=== PATIENT | female | born 1960 | race Caucasian/White ===

== ENCOUNTER 2023-03-27 09:52 | Outpatient (AMB) | payer BC, SELFPAY ==
--- NOTE | 2023-03-27 10:00 | MHC.OFFVIS ---
Intake Vital Signs 03/27/23 10:06 Height 5 ft 7 in Weight 165 lb BMI 25.8 BP 131/75 Blood Pressure Location Rt brachial Position Sitting Pulse 73 Intake Visit Reasons: Colonoscopy 4 year recall Intake Note: This patient presents for a recall colonoscopy screening. Patient c/o; reports last colonoscopy was done by 4 years ago, denies complaints at this time, family Hx colon CA, sister was Dx age of 70. 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 She describes a family history of colon cancer. She says her sister was diagnosed to have colon cancer in her late 60s. She therefore undergoes a colonoscopy every 5 years. Review of her records show that her last colonoscopy was in [address] Perkins. There were normal findings at that time. She currently denies significant GI complaints. She also stated that her brother, sister as well as son all were diagnosed to have ulcerative colitis. [facility] Medical History Thyroid disease Hyperlipidemia Family history of colon cancer Review of Systems Const Denies chills and Denies fever(s) Card Denies chest pain, Denies dyspnea and Denies dyspnea on exertion Resp Denies cough, Denies dyspnea and Denies dyspnea on exertion GI Denies hematochezia and Denies change in bowel habits Denies hematuria Musc Denies back pain and Denies limited range of motion Neuro Denies focal weakness and Denies convulsions Psych Denies depression and Denies mood swings Physical Exam Const General: comfortable and no acute distress Orientation/consciousness: patient oriented x3 Neck Neck: Yes no lymphadenopathy Resp Auscultation: clear to auscultation bilaterally Cardio Rhythm: regular rhythm GI Palpation (GI): Soft to palpation, nontender and no guarding Neuro General: patient oriented x3 Assessment & Plan Assessment & Plan (1) Family history of colon cancer: Code(s): Z80.0 - Family history of malignant neoplasm of digestive organs Plan: Her last colonoscopy was in 2019. This was unremarkable. I told her that Dr. Perkins had recommended another colonoscopy in 5 years. She may not be due until early next year. I reviewed with her the technique of this procedure. I explained the risks, benefits, and alternatives She says she understands. She says she will schedule for her colonoscopy for 2023. Coding Level of Care Code New Pt Level 3 (00399) Diagnoses Family history of colon cancer Z80.0
[2023-03-27 10:06] VITALS: BP 131/75; PULSE 73; BMI 25.8
== END 2023-03-27 10:18 | disposition home or self-care (01) ==
PROVIDERS: PCP Internal Medicine; Visit Provider Surgery
DX: Z80.0 Family history of malignant neoplasm of digestive organs (principal)
CPT/HCPCS: 99203

== ENCOUNTER → 2023-03-27 09:52 | Outpatient (BNVA) | payer BC, SELFPAY | PROVIDERS: PCP Internal Medicine; Visit Provider Surgery ==

== ENCOUNTER 2023-10-27 07:27 | Day surgery (SDC) | payer MEDICARE, SELFPAY ==
[2023-10-24 10:41] VITALS: BMI 25.8
--- NOTE | 2023-10-25 13:13 | HO.ANESPROP2 ---
Documented by User: Fallon Youssef NP 10/25/23 13:13 HPI - Anesthesia Eval Consult details Narrative: 63yo F for Colonoscopy with possible Polypectomy [facility] Active Problems Active Problems: All Active Problems Thyroid disease (Acute) Hyperlipidemia (Acute) Family history of colon cancer (Acute) Past Medical History Medical History (Updated 10/27/23 @ 07:53 by Kenyetta Cota) A-fib Thyroid disease Hyperlipidemia Family history of colon cancer Surgical History Surgical History (Updated 10/27/23 @ 07:53 by Kenyetta Cota) [place] teeth removed H/O colonoscopy History of total hip replacement Social History Social History Patient Tobacco Use Status: Never used Tobacco Use of substances other than those prescribed or required for medical reasons: No Are you DNR?: No Advance Directives: No Advance Directives Information Provided: Yes Meds Allergies Allergy/AdvReac Type Severity Reaction Status Date / Time morphine [MORPHINE] Allergy Intermediate HIVES/FLUSH Verified 10/27/23 07:53 ING Home Medications ?Medication ?Instructions ?Recorded ?Confirmed ?Last Taken ?Type atorvastatin 20 mg tablet 20 mg PO BEDTIME 03/27/23 10/27/23 Unknown History fluoxetine 20 mg capsule 20 mg PO DAILY 03/27/23 10/27/23 Unknown History levothyroxine 50 mcg tablet 50 mcg PO DAILY 03/27/23 10/27/23 Unknown History apixaban 5 mg tablet (Eliquis) 5 mg PO BID 10/27/23 10/27/23 10/25/23 History metoprolol succinate 25 mg 25 mg PO DAILY 10/27/23 10/27/23 10/26/23 History tablet,extended release 24 hr Exam Height,Weight and Vital Signs: Height 5 ft 7 in Weight 74.843 kg Assessment and Plan Assessment Anesthesia Assessment: Chart Reviewed Documented by User: Sybil Ramos MD 10/27/23 09:22 PMFSH Past Medical History Medical History (Updated 10/27/23 @ 07:53 by Kenyetta Cota) A-fib Thyroid disease Hyperlipidemia Family history of colon cancer Family History Family history of problems with anesthesia: No Surgical History Surgical History (Updated 10/27/23 @ 07:53 by Kenyetta Cota) [place] teeth removed H/O colonoscopy History of total hip replacement History of Problems with Anesthesia: No Social History Social History Patient Tobacco Use Status: Never used Tobacco Use of substances other than those prescribed or required for medical reasons: No Are you DNR?: No Advance Directives: No Advance Directives Information Provided: Yes Meds Allergies Allergy/AdvReac Type Severity Reaction Status Date / Time morphine [MORPHINE] Allergy Intermediate HIVES/FLUSH Verified 10/27/23 07:53 ING Home Medications ?Medication ?Instructions ?Recorded ?Confirmed ?Last Taken ?Type atorvastatin 20 mg tablet 20 mg PO BEDTIME 03/27/23 10/27/23 Unknown History fluoxetine 20 mg capsule 20 mg PO DAILY 03/27/23 10/27/23 Unknown History levothyroxine 50 mcg tablet 50 mcg PO DAILY 03/27/23 10/27/23 Unknown History apixaban 5 mg tablet (Eliquis) 5 mg PO BID 10/27/23 10/27/23 10/25/23 History metoprolol succinate 25 mg 25 mg PO DAILY 10/27/23 10/27/23 10/26/23 History tablet,extended release 24 hr Exam Airway Mallampati Class: II (caps laterally) TM Dist: >3cm Neck ROM: Full Heart: rrr Lungs: cta Assessment and Plan Assessment Anesthesia Assessment: Anesthesia Plan Discussed Final Anesthetic Review Family History of Problems with Anesthesia: No History of Problems with Anesthesia: No NPO: Yes ASA Class: II Final Preanesthetic Review: No Changes in Pt Med Stat, Meds/Allgs Chart Reviewed and Consent Obtained/Reviewed Patient Risk: Low Procedure Risk: Low Anesthetic Plan Anesthetic Plan: MAC: Disposition: Standard PACU
[2023-10-27 07:54] VITALS: BMI 27.5
[2023-10-27 08:02] VITALS: BP 119/51; PULSE 62; RESP 16; TEMP 37.4; O2SAT 97
[2023-10-27] MEDS: Lactated Ringers 1,000 ML 100 ML IVCONT (08:25)
--- NOTE | 2023-10-27 09:18 | MHC.SHP ---
Pre-Procedural Eval Section A - 24 Hr Update-Section A only Date of Service: 10/27/23 Section B - Complete if H&P > 30 days Chief Complaint: Family history of malignant neoplasm of digestive Details of Present Illness: Has family of colon cancer, undergoes colonoscopy every 5 years Relevant Social History: None Present Medications: see Short Stay Collaborative assessment Medical History: Significant History (Thyroid disease, hyperlipidemia) History of Previous Operations: No relevant previous surgery Allergies: Allergies Allergy/AdvReac Type Severity Reaction Status Date / Time morphine [MORPHINE] Allergy Intermediate HIVES/FLUSH Verified 10/27/23 07:53 ING Review of Systems Sugical H&P ROS: Negative: Constitution, Cardiovascular, Respiratory, Neurological, Psychiatric, Hem-Onc, Allergic/Immunologic, Gastrointestinal, Genitourinary, Musculoskeletal, Integumentary, Endocrine and Eyes/Ears/Nose/Throat Exam Surgical H&P Exam: Normal: HEENT, Normal: Heart, Normal: Lungs, Normal: Extremities, Normal: Abdomen, Normal: Skin and Normal: Neurological Plan Diagnosis/Plan: Unchanged I have reviewed the history and physical and performed a pertinent physical examination on my patient. No changes have occurred unless specified. Time Spent With Patient Time: Total time managing care of this patient today ____ minutes.
--- NOTE | 2023-10-27 09:23 | PC.NURSE ---
Patient has two rings on right thumb that can not be removed. Dr. Ramos and Dr. Walls made aware. Okay to proceed into procedure.
--- NOTE | 2023-10-27 09:56 | W.PM.OPN ---
Operative Note Operative Note Date of Service: 10/27/23 Narrative: Preop diagnosis: Family history of colon cancer Postop diagnosis: External hemorrhoids otherwise normal colonoscopy findings Procedure: Colonoscopy Surgeon:Cecil Naqvi MD The patient is a 63-year-old female with a family history of colon cancer. She undergoes a colonoscopy every 5 years. She understands the technique of the procedure as well as the risks, benefits, and alternatives.
--- NOTE | 2023-10-27 09:59 | W.PM.OPN ---
Operative Note Operative Note Date of Service: 10/27/23 Narrative: Preop diagnosis: Family history of colon cancer Postop diagnosis: External hemorrhoids otherwise normal colonoscopy findings Procedure: Colonoscopy Surgeon: Cecil Naqvi MD The patient is a 63-year-old female with a family history of colon cancer and undergoes a colonoscopy every 5 years. She understands the technique of the procedure as well as the risks, benefits, and alternatives. The patient was brought to the operating room and placed in left lateral decubitus position under monitored anesthesia care. A surgical time-out was done. A full digital rectal exam was done and this did not reveal any significant anal lesions. The tip of the Olympus colonoscope was gently introduced through the anal orifice advanced with insufflation all the way to the cecum. The cecum was intubated. The cecum was identified by visualization of the ileocecal valve as well as the appendiceal orifice. The cecal mucosa was unremarkable. The scope was gradually withdrawn with careful examination of the entire colonic mucosa being done with scope withdrawal. The patient had adequate bowel prep so it was unlikely that any lesion may have been missed. The rectum was reached and there were no lesions seen. The anal canal was unremarkable except for prominent external hemorrhoids.. The scope was then withdrawn completely with desufflation. The patient tolerated procedure well. There were no immediate complications. She can continue to have a colonoscopy every 5 years.
[2023-10-27 10:00] VITALS: BP 102/46; PULSE 57; RESP 16; TEMP 36.6; O2SAT 98
[2023-10-27 10:20] VITALS: BP 115/53; PULSE 78; RESP 20; TEMP 36.1; O2SAT 99
== END 2023-10-27 10:30 | disposition home or self-care (01) ==
PROVIDERS: PCP Internal Medicine; Visit Provider Surgery
PROC: 0DBE8ZZ Excision of Large Intestine, Via Natural or Artificial Opening Endoscopic (ICD-10-PCS; CPT G0105; principal; 2023-10-27 09:40)
DX: Z12.11 Encounter for screening for malignant neoplasm of colon (principal); Z80.0 Family history of malignant neoplasm of digestive organs; K64.4 Residual hemorrhoidal skin tags; E07.9 Disorder of thyroid, unspecified; Z79.899 Other long term (current) drug therapy; Z88.5 Allergy status to narcotic agent
CPT/HCPCS: G0105; J0330; J2704

== ENCOUNTER → 2023-10-27 07:27 | Outpatient (BNV) | payer MEDICARE, SELFPAY | PROVIDERS: PCP Internal Medicine; Visit Provider Surgery | DX: Z12.11 Encounter for screening for malignant neoplasm of colon (principal); K64.8 Other hemorrhoids; Z80.0 Family history of malignant neoplasm of digestive organs | CPT/HCPCS: G0105 ==